=== PATIENT | female | born 1995 | race Caucasian/White ===

== ENCOUNTER 2018-05-06 13:18 | Emergency (ER) | payer OTHER ==
[~2018-05-06] VITALS: Ht 165.1 cm; Wt 108.9 kg
[2018-05-06 13:28] VITALS: BP 105/74
--- NOTE | 2018-05-06 13:42 | NUR ---
PT AMBULATES TO BED 12
--- NOTE | 2018-05-06 13:45 | NUR ---
PT IS A 23 Y/O FEMALE WHO PRESENTS TO THE ED FOR WOUND CHECK. PT STATES THAT SHE HAD A SMALL WOUND TO R BUTTOCK, STATES "I HAD A PIMPLE AND IT POPPED, IT HAD YELLOW DRAINAGE." PT REPORTS 7/10 BURNING PAIN. NOTED WOUND TO R BUTTOCK, NO DRAINAGE OR BLEEDING. PT DENIES CP, SOB, N/V/D. PT AWAKE AND ALERT, RR EVEN/UNLABORED. PT AWAKE AND ALERT, RR EVEN/UNLABORED. PT REPOSITIONED FOR COMFORT, BED IN LOWEST POSITION. ER MD DR. FUNEZ NOTIFIED. WILL CONTINUE TO MONITOR. HX--DENIES RX---NONE
[2018-05-06] MEDS ORDERED: NEOMYCIN/POLYMYXIN/BACITRACIN 0.9 GM/1 PKT TP ONE (15:20)
[2018-05-06] MEDS ORDERED: CLINDAMYCIN 600 MG/4 ML VIAL IM ONE (15:20)
--- NOTE | 2018-05-06 16:16 | NUR ---
Patient discharged with v/s stable. Written and verbal after care instructions given and explained. Patient alert, oriented and verbalized understanding of instructions. Ambulatory with steady gait. All questions addressed prior to discharge. ID band removed. Patient advised to follow up with PMD. Rx of clindamycin, tramadol, bactrim given. Patient educated on indication of medication including possible reaction and side effects. Opportunity to ask questions provided and answered.
[2018-05-06 16:17] VITALS: BP 105/74
== END 2018-05-06 16:16 | disposition home or self-care (01) ==
LOC: MED 13:18
DX: L02.215 Cutaneous abscess of perineum (principal)
CPT/HCPCS: 87070; 87186; 96372; 99283; J3490

== ENCOUNTER 2024-01-03 00:05 | Emergency (ER) | payer OTHER ==
[~2024-01-03] VITALS: Ht 165.1 cm; Wt 117.9 kg
[2024-01-03 00:28] VITALS: BP 144/88; PULSE 77; RESP 18; TEMP 98; O2SAT 100
[2024-01-03] MEDS: ALUMINUM HYD/MAG/SIMETHICONE 30 ML UDC PO ONE (01:03)
[2024-01-03 01:32] LABS: BASOPHILS # (AUTO) 0.1 K/uL (0.00-0.22); BASOPHILS % (AUTO) 0.7 % (0.0-2.0); EOSINOPHILS # (AUTO) 0.1 K/uL (0-0.4); EOSINOPHILS % (AUTO) 0.8 % (0.0-4.0); HEMATOCRIT 30.2 % (36-48); HEMOGLOBIN 9.6 g/dL (12.0-16.0); LYMPHOCYTES # (AUTO) 3.6 K/uL (2.5-16.5); MEAN CORPUSCULAR HEMOGLOBIN 21 pg (27-31); MEAN CORPUSCULAR HGB CONC 32 g/dL (33-37); MEAN CORPUSCULAR VOLUME 67.2 fL (80-94); MONOCYTES # (AUTO) 0.9 K/uL (0.8-1.0); MONOCYTES % (AUTO) 7.3 % (1.7-9.3); NEUTROPHILS % (AUTO) 60.2 % (42.2-75.2); PLATELET COUNT (AUTO) 360 K/uL (140-450); RED CELL DISTRIBUTION WIDTH 18.9 % (11.6-13.7); WHITE BLOOD COUNT (AUTO) 11.7 K/uL (4.8-10.8)
[2024-01-03 01:41] LABS: ANION GAP 7.9 (8-16); CALCIUM 8.9 mg/dL (8.5-10.1); CARBON DIOXIDE 29.9 mmol/L (21-32); CREATININE 0.7 mg/dL (0.6-1.3); POTASSIUM 3.8 mmol/L (3.5-5.1)
[2024-01-03 01:47] LABS: ALBUMIN 3.4 g/dL (3.4-5.0); TOTAL BILIRUBIN 0.2 mg/dL (0.0-1.0); TOTAL PROTEIN, SERUM 7.8 g/dL (6.4-8.2)
[2024-01-03] MEDS ORDERED: FERR325E14 PO (02:12)
[2024-01-03] MEDS ORDERED: FAMO-92 PO (02:12)
[2024-01-03] MEDS ORDERED: ONDA-188 SL (02:12)
== END 2024-01-03 02:20 | disposition home or self-care (01) ==
LOC: MED 00:05
DX: K80.20 Calculus of gallbladder without cholecystitis without obstruction (principal); K29.70 Gastritis, unspecified, without bleeding; D64.9 Anemia, unspecified; R03.0 Elevated blood-pressure reading, without diagnosis of hypertension; Z79.899 Other long term (current) drug therapy
CPT/HCPCS: 36415; 80048; 80076; 81025; 83690; 85025; 99284